=== PATIENT | male | born 1985 | race Caucasian/White ===

== ENCOUNTER 2017-01-30 14:24 | Emergency (ER) | payer OTHER ==
[2017-01-30 14:30] VITALS: O2SAT 98
--- NOTE | 2017-01-30 15:45 | EDPHY ---
H & P Smoking Status: Never smoked Time Seen by Provider: 01/30/17 15:32 HPI/ROS: CHIEF COMPLAINT: Toe injury HISTORY OF PRESENT ILLNESS: This is a 31-year-old male presenting to the emergency department reports he was at the store around 1400 grabbing something from an upper skilled nursing pushed over 7-10 lb weight which dropped about 4-5 feet landing on his left 3rd toe smashing the tip. Worsening pain with weight- bearing "I think the toe nail broke off" tetanus vaccine is not up-to-date REVIEW OF SYSTEMS: Constitutional: No fever, no chills. Eyes: No blurred vision ENT: No sore throat. Cardiovascular: No chest pain, no palpitations. Respiratory: no shortness of breath. Gastrointestinal: No abdominal pain, no vomiting. Genitourinary: No hematuria. Musculoskeletal: No back pain. Smashed Left 3rd toe pain with bleeding Skin: No rashes. Neurological: No headache. (Patricia Bolanos) Physical Exam: General Appearance: Alert and no distress. Eyes: Pupils equal and round no injection. Respiratory: Chest is nontender, lungs are clear to auscultation. Cardiac: regular rate and rhythm Gastrointestinal: Abdomen is soft and nontender Musculoskeletal: Neck is supple. Full range of motion Extremities: Left tip of the 3rd toe avulsion laceration, toenail hanging from cuticle. Metatarsals nontender on palpation Skin: No rashes or lesions. (Patricia Bolanos) Constitutional: Initial Vital Signs Temperature (C) 36.7 C 01/30/17 14:29 Heart Rate 87 01/30/17 14:29 Respiratory Rate 16 01/30/17 14:29 Blood Pressure 143/76 H 01/30/17 14:29 O2 Sat (%) 98 01/30/17 14:29 O2 Delivery Mode Room Air Allergies/Adverse Reactions: No Known Allergies Allergy (Unverified 10/17/14 17:27) Home Medications: Medication Instructions Recorded Amoxicillin/Clavulanate Pot 875 mg PO BID #20 tab 01/30/17 [Augmentin 875 MG TAB (*)] oxyCODONE/APAP 5/325 [Percocet 1 - 2 tab PO Q4H PRN #20 tab 01/30/17 5/325 (*)] Medical Decision Making - Diagnostics Imaging Results: Imaging Impressions Foot X-Ray 01/30/17 15:22 Impression: Comminuted intra-articular fracture of the distal phalanx of the third toe. Procedures: Procedure: Laceration repair. Verbal consent was obtained from patient. 0.5% bupivacaine 5 mL for digital block. Left 3rd toe nail removed due to open avulsion fracture less than 0.5% cm nail bed laceration, 5 0 chromic gut 3 sutures placed. The procedure was performed by myself. Xerofoam placed A dressing was applied by our EMT. (Patricia Bolanos) ED Course/Re-evaluation: Discussed ED plan of care: X-ray left foot, tetanus vaccine, wound irrigation 1615: Discussed x-ray results with patient open [facility] 1715: Spoke with Dr. Qureshi, patient will follow-up in his office this week 1730: (Patricia Bolanos) I also saw the patient in the emergency department. I reviewed the history of dropping weight on the toe while at [employer]. Exam shows toenail avulsion with multiple small fractures and nail bed laceration. I reviewed the x-ray of comminuted fracture. The nurse practitioner iron discussed complete removal of the toenail and sutures and packing the eponychial space with Xeroform gauze. The patient and I discussed treatment plan including criteria for return importance of follow-up and further evaluation. He expresses understanding and agreement (Xander Feng) Differential Diagnosis: Other differential diagnosis considered but not limited to metatarsal fracture, foreign body and (Patricia Bolanos) - Data Points Medications Given: Discontinued Medications Diphtheria/Tetanus/Acell Pertussis (Boostrix) 0.5 ml IM .ONCE ONE Stop: 01/30/17 16:38 Last Admin: 01/30/17 16:52 Dose: 0.5 ml Cefazolin Sodium/Dextrose (Ancef 1 Gm (Premix)) 50 mls @ 200 mls/hr IV ONCE ONE Stop: 01/30/17 17:44 Last Admin: 01/30/17 17:13 Dose: 50 mls Departure - Departure Disposition: Home, Routine, Self-Care Clinical Impression: Fracture of toe of left foot Qualifiers: Encounter type: initial encounter Toe: lesser toe Fracture type: open Phalanx: distal Fracture alignment: displaced Qualified Code(s): S92.532B - Displaced fracture of distal phalanx of left lesser toe(s), initial encounter for open fracture Condition: Good Instructions: Toe Fracture (ED) Additional Instructions: 1. Take all antibiotics as directed 2. Call Dr. Qureshi office with Orthopedics tomorrow to set up a follow-up appointment 3. Leave initial dressing on until follow-up appointment 4. Decreased prolonged pressure on foot, elevate when possible Referrals: NONE *PRIMARY CARE P,. [Primary Care Provider] - As per Instructions Jill Qureshi MD [Medical Doctor] - As per Instructions Prescriptions: Amoxicillin/Clavulanate Pot [Augmentin 875 MG TAB (*)] 875 mg PO BID #20 tab oxyCODONE/APAP 5/325 [Percocet 5/325 (*)] 1 - 2 tab PO Q4H PRN #20 tab PRN Reason: Pain, Severe
[2017-01-30] MEDS ORDERED: TDAP ADULT 0.5 ML INJ (BOOSTRIX) IM ONE (16:37)
[2017-01-30] MEDS ORDERED: ceFAZolin 1 GM in NS 100 ML IV ONE (16:38)
[2017-01-30 17:58] VITALS: BP 136/68; PULSE 82; RESP 14; TEMP 97.9
== END 2017-01-30 17:56 | disposition home or self-care (01) ==
PROC: 0HQRXZZ Repair Toe Nail, External Approach (ICD-10-PCS; principal; 2017-01-30)
DX: S92.532B Displaced fracture of distal phalanx of left lesser toe(s), initial encounter for open fracture (principal); Z23 Encounter for immunization; W20.8XXA Other cause of strike by thrown, projected or falling object, initial encounter; Y92.512 Supermarket, store or market as the place of occurrence of the external cause
CPT/HCPCS: 96374; J0690; L3260